=== PATIENT | male | born 1975 | race Caucasian/White ===

== ENCOUNTER 2017-03-31 19:43 | Emergency (ER) | payer OTHER ==
[~2017-03-31 19:43] MED LIST: ASPIRIN81 M1 PO; BACTRIM DS TABL1 TA1 DOB; IBUPROFEN800 MG PO; KEFLEX500 MG; KEFLEX500 MG PO; TYLENOL #3 PO
== END 2017-03-31 21:18 | disposition home or self-care (01) ==
LOC: CFTX 19:43 → CED 19:43 → CFTX 20:00
DX: S61.412A Laceration without foreign body of left hand, initial encounter (principal); F17.200 Nicotine dependence, unspecified, uncomplicated; Z23 Encounter for immunization; W45.8XXA Other foreign body or object entering through skin, initial encounter; Y92.009 Unspecified place in unspecified non-institutional (private) residence as the place of occurrence of the external cause
CPT/HCPCS: 12001; 90471; 90715; 99283

== ENCOUNTER 2017-04-08 11:50 | Emergency (ER) | payer OTHER | END 2017-04-08 12:24 | disposition home or self-care (01) | LOC: CFTX 11:50 → CED 11:50 → CFTX 12:21 | DX: S61.412D Laceration without foreign body of left hand, subsequent encounter (principal); F17.210 Nicotine dependence, cigarettes, uncomplicated; X58.XXXD Exposure to other specified factors, subsequent encounter | CPT/HCPCS: 99281 ==